=== PATIENT | male | born 1955 | race Caucasian/White ===

== ENCOUNTER → 2016-05-05 | Outpatient (CLI) | payer BC, OTHER ==
[~2016-05-05] MED LIST: IRONCAP PO; LPR50X PO; WARF2TAB PO
--- NOTE | 2016-05-05 13:56 | DIAGNOSTIC IMAGING REPORT ---
Bilateral knees 3 views each CLINICAL HISTORY: BILATERAL KNEE PAIN Right COMPARISON STUDY: Bilateral knees 10/06/2014. FINDINGS: There are bilateral total knee arthroplasties. The hardware appears intact. No significant knee effusions. No acute fracture or dislocation. Mild left anterior knee soft tissue swelling. This has improved. No abnormal periprosthetic lucency. IMPRESSION: 1. Bilateral total knee arthroplasties. 2. No fracture or dislocation. 3. Mild left knee anterior soft tissue swelling. This has improved. Electronically signed by: Allen Krause M.D. 05/05/2016 1:54 PM
== END | disposition home or self-care (01) ==
LOC: C.RDSM 13:24
PROVIDERS: ATTEND Physical Medicine & Rehabilitation Sports Medicine
DX: R52 Pain, unspecified (principal)

== ENCOUNTER → 2017-05-08 | Outpatient (CLI) | payer OTHER ==
--- NOTE | 2017-05-08 10:13 | DIAGNOSTIC IMAGING REPORT ---
R KNEE 1 OR 2 VIEWS CLINICAL HISTORY: BILATERAL TOTAL KNEE REPLACEMENT pain COMPARISON: 05/05/2016 DISCUSSION: The bones and joint spaces appear intact. There is no evidence of fracture, dislocation or bony disease. There is no evidence for soft tissue swelling. Anatomic alignment status post bilateral total knee arthroplasties IMPRESSION: Anatomic alignment status post bilateral total knee arthroplasties. The above report was generated using voice recognition software. It may contain grammatical, syntax or spelling errors. Electronically signed by: Farhat Aranda M.D. 05/08/2017 10:12 AM Dictated Date/Time: 05/08/2017 10:10 AM
== END | disposition home or self-care (01) ==
LOC: C.RDSM 10:00
PROVIDERS: ATTEND Physician Assistant
DX: Z96.653 Presence of artificial knee joint, bilateral (principal)